=== PATIENT | female | born 1980 | race Caucasian/White ===

== ENCOUNTER → 2019-01-28 | Outpatient (REF) | payer OTHER ==
[~2019-01-28] MED LIST: /HYDR10T PO; CELE100C; DEPA250C; DEPA250T3; DIAZ2TAB PO; GEOD20CA14; KLON0.5T; LAMI1TAB7 PO; LAMICTAL PO; META800T82 PO; SERO1TAB; THIO25TA PO; TRAM50TA2; TRAZ100T; ULTR50TA PO; XANA1TAB2; XANA2TAB2 PO; ZOLO100T PO
== END ==
LOC: M LAB LCGH 13:47
PROVIDERS: ATTEND Obstetrics & Gynecology
DX: Z12.4 Encounter for screening for malignant neoplasm of cervix (principal)